=== PATIENT | female | born 1970 | race Two or more races ===

== ENCOUNTER 2024-02-28 05:20 | Emergency (ER) | payer OTHER ==
[2024-02-28 05:32] VITALS: BP 159/76; PULSE 79; RESP 22; TEMP 98.9; BMI 37.3
== END 2024-02-28 06:51 | disposition home or self-care (01) ==
LOC: JER 05:20
DX: R04.0 Epistaxis (principal); R05.9 Cough, unspecified; J02.9 Acute pharyngitis, unspecified
CPT/HCPCS: 71045-TC-FY; 99283-25